=== PATIENT | male | born 1985 | race African-American/Black ===

== ENCOUNTER 2018-10-23 22:35 | Inpatient (IN) | payer MEDICAID ==
[~2018-10-23] VITALS: Ht 190.5 cm; Wt 97.6 kg
[~2018-10-23 22:35] MED LIST: IBUP-1542 PO
[2018-10-23] MEDS ORDERED: SOD CHLORIDE 0.9% 1,000 ML IV STA (22:42)
[2018-10-23] MEDS ORDERED: LORAZEPAM 2 MG INJ IV ONE (23:00)
[2018-10-24] MEDS ORDERED: ATROPINE 1 MG/10 ML SYRINGE IV PRN
[2018-10-24] MEDS ORDERED: IODIXANOL LOCM 100 ML BTL ONE (00:10)
[2018-10-24] MEDS ORDERED: SOD CHLORIDE 0.9% 100 ML ONE ×2 (00:10→16:14)
[2018-10-24] MEDS ORDERED: ACETAMINOPHEN 325 MG TAB PO PRN ×2 (02:00→03:30)
[2018-10-24] MEDS ORDERED: ONDANSETRON 4 MG INJ IV PRN ×2 (02:00→03:30)
[2018-10-24] MEDS ORDERED: BISACODYL (EC) 5 MG TAB PO PRN (03:30)
[2018-10-24] MEDS ORDERED: DOCUSATE SODIUM 100 MG CAP PO PRN (03:30)
[2018-10-24] MEDS ORDERED: NACL 0.9% 3 ML SYG IV SCH (03:30)
[2018-10-24 03:35] VITALS: BP 99/57; PULSE 58; RESP 20
[2018-10-24 03:59] VITALS: Ht 190.5 cm; Wt 97.6 kg
[2018-10-24] MEDS ORDERED: SOD CHLORIDE 0.9% 1,000 ML IV ONE (07:00)
[2018-10-24 07:52] VITALS: BP 120/73; PULSE 79; RESP 17
[2018-10-24] MEDS ORDERED: LORAZEPAM 1 MG TAB PO PRN (11:00)
[2018-10-24 11:28] VITALS: BP 123/79; PULSE 70; RESP 18
[2018-10-24 15:45] VITALS: BP 122/74; PULSE 71; RESP 18
[2018-10-24] MEDS ORDERED: NITROGLYCERIN (SL) 0.4 MG TAB SL PRN (16:00)
[2018-10-24] MEDS ORDERED: IOHEXOL 100 ML ONE (16:14)
[2018-10-25 07:43] VITALS: BP 123/87; PULSE 60; RESP 18
[2018-10-25 12:00] VITALS: BP 108/73; PULSE 64; RESP 18
[2018-10-25] MEDS ORDERED: REGADENOSON 0.4 MG/5 ML SYG ONE (13:30)
[2018-10-25] MEDS ORDERED: SOD CHLORIDE 0.9% 250 ML IV ONE (15:00)
[2018-10-25 15:48] VITALS: BP 114/71; PULSE 65; RESP 18
== END 2018-10-25 17:06 | disposition home or self-care (01) | DRG 313 ==
LOC: E/R 22:35 → TEL 10-24 01:59
PROVIDERS: ADMIT Family Medicine; ATTEND Hospitalist
DX: R07.9 Chest pain, unspecified (principal); N17.9 Acute kidney failure, unspecified; E86.0 Dehydration; R55 Syncope and collapse; R00.1 Bradycardia, unspecified; R53.1 Weakness
CPT/HCPCS: 36415; 70450; 70496; 70498; 71045; 71275; 75635; 78452; 80048; 80053; 80061; 80307; 81003; 82962; 83036; 83735; 84443; 84484; 85025; 85610; 85730; 93005; 93017; 93306; 96374; A9500; A9505; J2060; J2785; J7030; J7040; Q9967